=== PATIENT | male | born 1995 | race American Indian/Alaskan Native ===

== ENCOUNTER 2022-07-01 07:32 | Emergency (ER) | payer MEDICAID ==
[2022-07-01] MEDS ORDERED: oxyCODONE /ACETAMINOPHEN 5-325MG TAB PO ONE (09:13)
[2022-07-01] MEDS ORDERED: KETOROLAC 10 MG TAB PO ONE (09:13)
[2022-07-01] MEDS ORDERED: TETANUS,DIPH,PERTUSS(ACELL) VACCINE 0.5 ML SYRINGE IM ONE (09:13)
[2022-07-01] MEDS ORDERED: SODIUM CHLORIDE 0.9% IRR 500 ML BOTTLE IR ONE (11:00)
[2022-07-01] MEDS ORDERED: LIDOCAINE (1%) 10 MG/1 ML VIAL 20 ML MDV INFILTRATI ONE (11:00)
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
--- NOTE | 2022-07-01 11:10 | XRay Report ---
. LEFT KNEE 3 VIEWS INDICATION: fall, pain and laceration. COMPARISON: None. IMPRESSION: No acute osseous or soft tissue abnormality. No significant DJD. Signer Name: Norman Whittaker Jr, MD Signed: 07/01/2022 11:06 AM Workstation Name: [id number]
[2022-07-01 15:06] VITALS: BP 127/78
== END 2022-07-01 14:15 | disposition home or self-care (01) ==
LOC: ED 07:32
DX: S81.012A Laceration without foreign body, left knee, initial encounter (principal); X58.XXXA Exposure to other specified factors, initial encounter; Y93.89 Activity, other specified; Y92.89 Other specified places as the place of occurrence of the external cause; Y99.8 Other external cause status
CPT/HCPCS: 90471; 90715; 99283

== ENCOUNTER 2022-07-07 17:11 | Emergency (ER) | payer MEDICAID ==
[2022-07-07 19:46] VITALS: BP 144/93
--- NOTE | 2022-07-07 20:41 | Emergency Department Report ---
Suture/Staple Removal - HPI Chief Complaint: Laceration/Recheck/Suture Stated Complaint: NEED STITCHES REMOVED Time Seen by Provider: 07/07/22 20:32 Wound Location: left knee placed on 07/01/2022 ED Review of Systems ROS: Stated complaint: NEED STITCHES REMOVED Other details as noted in HPI Comment: All other systems reviewed and negative ED Past Medical Hx - Social History Smoking Status: Never Smoker - Medications Home Medications: Home Medications Medication Instructions Recorded Confirmed Last Taken Type Ibuprofen [Motrin] 800 mg PO Q8HR PRN 7 Days #21 07/01/22 Unknown Rx tablet Suture Removal Exam - Exam General: Vital signs noted. No distress. Alert and acting appropriately. Wound: No Pathologic Erythema, No Tenderness, No Drainage, No Pus, No Wound Dehiscence Other Systems: All other systems reviewed and are unremarkable. left knee not well healed and would like to have sutures removed ED Course Vital Signs 07/07/22 19:45 Temperature 98.8 F Pulse Rate 75 Respiratory 18 Rate Blood Pressure 144/93 O2 Sat by Pulse 97 Oximetry ED Recheck MDM - Medical Decision Making left knee wound not well healed but wants sutures rememoved is aware that wound will likely break open. Denies wound discharge. Critical care attestation.: If time is entered above; I have spent that time in minutes in the direct care of this critically ill patient, excluding procedure time. ED Disposition Clinical Impression: Laceration of left knee Disposition: 01 HOME / SELF CARE / HOMELESS Is pt being admited?: No Does the pt Need Aspirin: No Condition: Stable Instructions: Laceration Care, Adult, Sutures, Jaylen, or Adhesive Wound Closure Referrals: [facility] [Provider Group] - 3-5 Days
== END 2022-07-07 21:35 | disposition home or self-care (01) ==
LOC: ED 17:11
DX: S81.012D Laceration without foreign body, left knee, subsequent encounter (principal); X58.XXXD Exposure to other specified factors, subsequent encounter
CPT/HCPCS: 99282

== ENCOUNTER 2022-07-11 17:17 | Emergency (ER) | payer MEDICAID ==
--- NOTE | 2022-07-11 23:45 | Emergency Department Report ---
- General Chief Complaint: Laceration/Recheck/Suture Stated Complaint: LT KNEE STICHES Time Seen by Provider: 07/11/22 22:23 Source: patient Mode of arrival: Ambulatory Limitations: No Limitations - History of Present Illness Initial Comments: 27-year-old male with left knee pain reports having knee discomfort after his sutures were removed at his demand a couple days ago. The wound had dehisced and now is beginning to experience pain and some reported swelling and clear fluid discharge we will follow the treatments but malacic in for reevaluation and pain control. Reports no fever, chills, sweats. No numbness or or tingling is also requesting to have the wound resutured -: Gradual Extremity Location: Left: Knee Place: home Patient Tetanus UTD: Yes Context: accidental Associated Symptoms: none Treatments Prior to Arrival: bandage - Related Data Previous Rx's Medication Instructions Recorded Last Taken Type Ibuprofen [Motrin] 800 mg PO Q8HR PRN 7 Days #21 07/01/22 Unknown Rx tablet cephALEXin [Keflex] 500 mg PO Q8HR #30 cap 07/11/22 Unknown Rx Mupirocin [Bactroban 2% OINT] 1 applic TP ONCE #2 tube 07/12/22 Unknown Rx Allergies Allergy/AdvReac Type Severity Reaction Status Date / Time No Known Allergies Allergy Verified 07/11/22 18:22 ED Review of Systems ROS: Stated complaint: LT KNEE STICHES Other details as noted in HPI Comment: All other systems reviewed and negative ED Past Medical Hx - Past Medical History Previous Medical History?: No - Surgical History Past Surgical History?: No - Social History Smoking Status: Never Smoker - Medications Home Medications: Home Medications Medication Instructions Recorded Confirmed Last Taken Type Ibuprofen [Motrin] 800 mg PO Q8HR PRN 7 Days #21 07/01/22 Unknown Rx tablet cephALEXin [Keflex] 500 mg PO Q8HR #30 cap 07/11/22 Unknown Rx Mupirocin [Bactroban 2% OINT] 1 applic TP ONCE #2 tube 07/12/22 Unknown Rx ED Physical Exam - General Limitations: No Limitations General appearance: alert, in no apparent distress - Head Head exam: Present: atraumatic, normocephalic - Eye Eye exam: Present: normal appearance, PERRL, EOMI Pupils: Present: normal accommodation - ENT ENT exam: Present: normal exam, normal orophraynx, mucous membranes moist, TM's normal bilaterally - Neck Neck exam: Present: normal inspection, full ROM - Respiratory Respiratory exam: Present: normal lung sounds bilaterally. Absent: respiratory distress, wheezes, rales - Cardiovascular Cardiovascular Exam: Present: regular rate, normal rhythm. Absent: systolic murmur, diastolic murmur, rubs, gallop - GI/Abdominal GI/Abdominal exam: Present: soft, normal bowel sounds - Rectal Rectal exam: Present: deferred - Extremities Exam Extremities exam: Present: normal inspection, tenderness, normal capillary refill - Expanded Lower Extremity Exam Right Knee exam: Present: laceration (Laceration healing by secondary intention with obvious wound dehiscence then back inTo the suture removal date complaining of) - Back Exam Back exam: Present: normal inspection. Absent: CVA tenderness (R), CVA tenderness (L) - Neurological Exam Neurological exam: Present: alert, oriented X3, CN II-XII intact, normal gait - Psychiatric Psychiatric exam: Present: normal affect, normal mood - Skin Skin exam: Present: warm, dry, intact, normal color. Absent: rash ED Course Vital Signs 07/11/22 18:17 Temperature 98.4 F Pulse Rate 68 Respiratory 18 Rate Blood Pressure 133/90 [Left] O2 Sat by Pulse 99 Oximetry Critical care attestation.: If time is entered above; I have spent that time in minutes in the direct care of this critically ill patient, excluding procedure time. ED Disposition Clinical Impression: Laceration of left knee Disposition: HOME / SELF CARE / HOMELESS Is pt being admited?: No Does the pt Need Aspirin: No Condition: Stable Instructions: Laceration Care, Adult, Wound Care, Adult Prescriptions: Mupirocin [Bactroban 2% OINT] 1 applic TP ONCE #2 tube cephALEXin [Keflex] 500 mg PO Q8HR #30 cap Referrals: YANI KAPOOR MD [Primary Care Provider] - 3-5 Days
[2022-07-11] MEDS ORDERED: MUPIROCIN 2% OINT 22 GM TP ONE (23:50)
[2022-07-12 03:52] VITALS: BP 138/78
== END 2022-07-12 01:45 | disposition home or self-care (01) ==
LOC: ED 17:17
DX: S81.012A Laceration without foreign body, left knee, initial encounter (principal); X58.XXXA Exposure to other specified factors, initial encounter; Y93.89 Activity, other specified; Y92.89 Other specified places as the place of occurrence of the external cause; Y99.8 Other external cause status
CPT/HCPCS: 99282